=== PATIENT | male | born 1970 | race Caucasian/White ===

== ENCOUNTER 2017-08-01 09:08 | Inpatient (IN) | payer OTHER ==
[2017-08-01 10:32] VITALS: BMI 24.8
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
[2017-08-01] MEDS ORDERED: ACETAMINOPHEN 325 MG TABLET (FP) PO PRN (11:42)
[2017-08-01] MEDS ORDERED: MAGNESIUM CITRATE 300 ML BOTTLE PO PRN (11:42)
[2017-08-01] MEDS ORDERED: guaiFENesin/D-METHORPHAN HB 10 ML UNIT-DOSE CUPS PO PRN (11:42)
[2017-08-01] MEDS ORDERED: P-EPHED 60MG/TRIPROLIDI 2.5MG TABLET PO PRN (11:42)
[2017-08-01] MEDS ORDERED: MENTHOL/PHENOL 1 EACH UD MM PRN (11:42)
[2017-08-01] MEDS ORDERED: NICOTINE POLACRILEX 4 MG GUM BUC PRN (11:42)
[2017-08-01] MEDS ORDERED: IBUPROFEN 400 MG TABLET (FP) PO PRN (11:42)
[2017-08-01] MEDS ORDERED: LOPERAMIDE HCL 2 MG CAPSULE PO PRN (11:42)
[2017-08-01] MEDS ORDERED: MAG HYDROX/AL HYDROX/SIMETH 30 ML UNIT-DOSE CUP PO PRN (11:42)
[2017-08-01] MEDS ORDERED: MAGNESIUM HYDROX 2400MG/30ML ORAL SUSPENSION 30 ML CUP PO PRN (11:42)
[2017-08-01] MEDS ORDERED: METHADONE HCL 10 MG TABLET (FOR DETOX USE ONLY) PO ONE ×2 (11:56→23:00)
[2017-08-01] MEDS: diazePAM 5 MG TABLET PO PRN ×2 (12:46→22:02)
[2017-08-01 17:54] LABS: URINE APPEARANCE SLCLOUDY; URINE BILIRUBIN NEGATIVE (NEGATIVE); URINE BLOOD NEGATIVE (NEGATIVE); URINE COLOR YELLOW; URINE GLUCOSE (UA) NEGATIVE (NEGATIVE); URINE KETONE NEGATIVE (NEGATIVE); URINE NITRITE NEGATIVE (NEGATIVE); URINE PROTEIN NEGATIVE (NEGATIVE); URINE UROBILINOGEN NEGATIVE mg/dL (0.2-1.0)
[2017-08-01] MEDS: THIAMINE HCL 100 MG TABLET (FP) PO SCH (22:01)
[2017-08-01 22:04] LABS: URINE LEUK ESTERASE Negative (NEGATIVE)
[2017-08-02] MEDS: diazePAM 5 MG TABLET PO PRN ×3 (06:29→22:02)
[2017-08-02 06:48] LABS: HIV 1 & 2 AB NEGATIVE; HIV 1 AGp24 NEGATIVE
--- NOTE | 2017-08-02 09:46 | EKG ---
Test Reason : Blood Pressure : / mmHG Vent. Rate : 061 BPM Atrial Rate : 061 BPM P-R Int : 190 ms QRS Dur : 088 ms QT Int : 380 ms P-R-T Axes : 076 078 065 degrees QTc Int : 382 ms NORMAL SINUS RHYTHM NORMAL ECG NO PREVIOUS ECGS AVAILABLE Confirmed by SERG DELEON, MADI ([id number]) on 08/02/2017 9:45:41 AM Referred By: Confirmed By:MADI ULRICH MD
[2017-08-02] MEDS ORDERED: METHADONE HCL 10 MG TABLET (FOR DETOX USE ONLY) PO ONE (10:00)
[2017-08-02 10:01] LABS: MCH 27.4 pg (25.7-33.7); MCHC 32.3 g/dl (32.0-35.9); MEAN CELL VOLUME 84.8 fl (80-96); MEAN PLT VOLUME 8.5 fl (7.5-11.1); PLATELET COUNT 227 K/MM3 (134-434); WHITE BLOOD COUNT 6.9 K/mm3 (4.0-10.0)
[2017-08-02 10:09] LABS: ALBUMIN 3.8 g/dl (3.4-5.0); ANION GAP 7 (8-16); CALCIUM 8.9 mg/dL (8.5-10.1); CO2 29 mmol/L (21-32); CREATININE 1.4 mg/dL (0.7-1.3); GLUCOSE,RANDOM 92 mg/dL (74-106); SGOT/AST 11 U/L (15-37); SGPT/ALT 19 U/L (12-78)
[2017-08-02 10:10] LABS: ALK PHOS 93 U/L (45-117); BILIRUBIN,TOTAL 0.6 mg/dL (0.2-1.0); TOT PROT 6.7 g/dl (6.4-8.2)
[2017-08-02] MEDS: PRENATAL VITAMINS W/ FOLIC ACID TABLET (FP) PO SCH (10:32)
[2017-08-02] MEDS: NICOTINE 21 MG/24 HOURS TOPICAL PATCH TD SCH (10:33)
--- NOTE | 2017-08-02 12:19 | PN ---
BHS COWS - Scale Resting Pulse: 2= [place] 101-120 Sweatin=Flushed/Facial Moisture Restless Observation: 1= Difficult to Sit Still Pupil Size: 0= Normal to Room Light Bone or Joint Aches: 2= Severe Diffuse Aches Runny Nose/ Eye Tearin= Nasal Congestion GI Upset > 30mins: 1= Stomach Cramp Tremor Observation of Outstretched Hands: 0= None Yawning Observation: 1= 1-2x During Session Anxiety or Irritability: 2=Irritable/Anxious Goose Flesh Skin: 3=Piloerection COWS Score: 15 BHS Progress Note (SOAP) Subjective: Sweating, Body Aches, Anxious. Objective: PT. A & O X 3, OBSERVED AMBULATING ON UNIT. NO ACUTE DISTRESS. 08/02/17 12:21 Vital Signs Temperature 97.8 F 08/02/17 09:41 Pulse Rate 113 H 08/02/17 09:41 Respiratory Rate 18 08/02/17 09:41 Blood Pressure 115/78 08/02/17 09:41 O2 Sat by Pulse Oximetry (%) Laboratory Tests 08/01/17 08/01/17 08/02/17 11:50 15:30 05:30 WBC 6.9 RBC 5.24 Hgb 14.4 Hct 44.4 MCV 84.8 MCH 27.4 MCHC 32.3 RDW 15.0 Plt Count 227 MPV 8.5 Sodium Potassium Chloride Carbon Dioxide Anion Gap BUN Creatinine Creat Clearance w eGFR Random Glucose Calcium Total Bilirubin AST ALT Alkaline Phosphatase Total Protein Albumin Urine Color Yellow Urine Appearance Slcloudy Urine pH 5.0 Ur Specific [place] 1.028 Urine Protein Negative Urine Glucose (UA) Negative Urine Ketones Negative Urine Blood Negative Urine Nitrite Negative Urine Bilirubin Negative Urine Urobilinogen Negative Ur Leukocyte Esterase Negative RPR Titer HIV 1&2 Antibody Screen Negative HIV P24 Antigen Negative 08/02/17 08/02/17 05:30 05:30 WBC RBC Hgb Hct MCV MCH MCHC RDW Plt Count MPV Sodium 141 Potassium 4.1 Chloride 105 Carbon Dioxide 29 Anion Gap 7 L BUN 14 Creatinine 1.4 H Creat Clearance w eGFR 54.56 Random Glucose 92 Calcium 8.9 Total Bilirubin 0.6 AST 11 L ALT 19 Alkaline Phosphatase 93 Total Protein 6.7 Albumin 3.8 Urine Color Urine Appearance Urine pH Ur Specific [place] Urine Protein Urine Glucose (UA) Urine Ketones Urine Blood Urine Nitrite Urine Bilirubin Urine Urobilinogen Ur Leukocyte Esterase RPR Titer Nonreactive HIV 1&2 Antibody Screen HIV P24 Antigen LABS NOTED. Assessment: 08/02/17 12:21 WITHDRAWAL SYMPTOMS. Plan: CONTINUE DETOX. INCREASE DAILY PO FLUID INTAKE. BMP ON 08/04/2017 FOR ABNORMAL ADMISSION RENAL LAB VALUES.
--- NOTE | 2017-08-02 15:06 | CONSULT ---
[facility] Psychiatric Consult - Data Date of interview: 08/02/17 Admission source: [facility] Identifying data: First admission to [facility] for this 47 y/o male seeking detox treatment on for heroin and cannabis dependence.Patient is single,a father of two,domiciled,unemployed and supported on SSI benefits. Substance Abuse History: Confirmed by patient in this interview. See [facility] report for details.Smoking history: Current every day smoker. Have you smoked in the past 12 months: Yes. Aproximately how many cigarettes per day: 10. Hx Chewing Tobacco Use: No. Initiated information on smoking cessation: Yes. ' Breaking Loose' booklet given: 08/01/17. - Substance & Tx. History. Hx Alcohol Use: No. Hx Substance Use: Yes. Substance Use Type: Heroin, Marijuana. Hx Substance Use Treatment: No. - Substances Abused. Heroin. Route: Inhalation. Frequency: Daily. Amount used: 3 bags. Age of first use: 44. Date of Last Use: 08/01/17. Marijuana/Hashish. Route: Smoking. Frequency: 1-2 times per week. Amount used: $10. Age of first use: 19. Date of Last Use: 08/01/17 Medical History: Patient reports good general health. Psychiatric History: Diagnosed with Bipolar Disorder.Patient reports that he is currently followed at the [facility] in [facility].Admits to two psychiatric hospitalizations.Prescribed zyprexa (dose not recalled).Date of last intake : unknown as per self-report.Mr Ramirez denies history of suicide attempts. Physical/Sexual Abuse/Trauma History: Patient denies. Additional Comment: Urine Drug Screen Results: THC-Marijuana, OPI-Opiates, AMP- Amphetamines, MET-Methamphetamine.Noted. Mental Status Exam - Mental Status Exam Alert and Oriented to: Time, Place, Person Cognitive Function: Good Patient Appearance: Well Groomed Mood: Hopeful, Euthymic Affect: Appropriate, Normal Range Patient Behavior: Fatigued, Cooperative Speech Pattern: Clear Voice Loudness: Normal Thought Process: Goal Oriented Thought Disorder: Not Present Hallucinations: Denies Suicidal Ideation: Denies Homicidal Ideation: Denies Insight/Judgement: Poor Sleep: Well Appetite: Good Muscle strength/Tone: Normal Gait/Station: Normal Psychiatric Findings - Problem List ([place] 1, 2,3) (1) Opioid dependence with withdrawal Current Visit: Yes Status: Acute (2) Cannabis dependence Current Visit: Yes Status: Acute (3) Nicotine dependence Current Visit: Yes Status: Acute Qualifiers: Nicotine product type: cigarettes Substance use status: uncomplicated Qualified Code(s): F17.210 - Nicotine dependence, cigarettes, uncomplicated (4) Substance induced mood disorder Current Visit: Yes Status: Acute - Initial Treatment Plan Initial Treatment Plan: Psychoeducation.Detoxification.I have established contact with the pharmacist at [facility] at [phone] : last refill for olanzapine 20 mg/day was issued in November 2013.Patient is NOT a reliable historian.Advised to contact provider at [facility] outpatient program.Medications reconciliation : NO HOME medications.Observation.
--- NOTE | 2017-08-02 18:43 | PN ---
S Progress Note Note: received nurse call that the patient has cell phone with him, removed by the security continue deotx
[2017-08-02] MEDS: THIAMINE HCL 100 MG TABLET (FP) PO SCH (22:02)
[2017-08-03] MEDS ORDERED: METHADONE HCL 5 MG TABLET (FOR DETOX USE ONLY) PO ONE (10:00)
[2017-08-03] MEDS: NICOTINE 21 MG/24 HOURS TOPICAL PATCH TD SCH (10:48)
[2017-08-03] MEDS: PRENATAL VITAMINS W/ FOLIC ACID TABLET (FP) PO SCH (10:48)
--- NOTE | 2017-08-03 14:27 | PN ---
S COWS - Scale Resting Pulse: 0= [place] 80 or Below Sweatin= Chills/Flushing Restless Observation: 1= Difficult to Sit Still Pupil Size: 0= Normal to Room Light Bone or Joint Aches: 2= Severe Diffuse Aches Runny Nose/ Eye Tearin= Nasal Congestion GI Upset > 30mins: 1= Stomach Cramp Tremor Observation of Outstretched Hands: 1= Tremor [place], Not Seen Yawning Observation: 2= >3x During Session Anxiety or Irritability: 1=Feels Anxious/Irritable Goose Flesh Skin: 3=Piloerection COWS Score: 13 BHS Progress Note (SOAP) Subjective: Constipation, Tremors, Anxious, Sweating. Objective: PT. A & O X 3. NO ACUTE DISTRESS. 08/03/17 14:26 Vital Signs Temperature 95.8 F L 08/03/17 08:54 Pulse Rate 75 08/03/17 08:54 Respiratory Rate 18 08/03/17 08:54 Blood Pressure 114/81 08/03/17 08:54 O2 Sat by Pulse Oximetry (%) Laboratory Tests 08/01/17 08/01/17 08/02/17 11:50 15:30 05:30 WBC 6.9 RBC 5.24 Hgb 14.4 Hct 44.4 MCV 84.8 MCH 27.4 MCHC 32.3 RDW 15.0 Plt Count 227 MPV 8.5 Sodium Potassium Chloride Carbon Dioxide Anion Gap BUN Creatinine Creat Clearance w eGFR Random Glucose Calcium Total Bilirubin AST ALT Alkaline Phosphatase Total Protein Albumin Urine Color Yellow Urine Appearance Slcloudy Urine pH 5.0 Ur Specific [place] 1.028 Urine Protein Negative Urine Glucose (UA) Negative Urine Ketones Negative Urine Blood Negative Urine Nitrite Negative Urine Bilirubin Negative Urine Urobilinogen Negative Ur Leukocyte Esterase Negative RPR Titer HIV 1&2 Antibody Screen Negative HIV P24 Antigen Negative 08/02/17 08/02/17 05:30 05:30 WBC RBC Hgb Hct MCV MCH MCHC RDW Plt Count MPV Sodium 141 Potassium 4.1 Chloride 105 Carbon Dioxide 29 Anion Gap 7 L BUN 14 Creatinine 1.4 H Creat Clearance w eGFR 54.56 Random Glucose 92 Calcium 8.9 Total Bilirubin 0.6 AST 11 L ALT 19 Alkaline Phosphatase 93 Total Protein 6.7 Albumin 3.8 Urine Color Urine Appearance Urine pH Ur Specific [place] Urine Protein Urine Glucose (UA) Urine Ketones Urine Blood Urine Nitrite Urine Bilirubin Urine Urobilinogen Ur Leukocyte Esterase RPR Titer Nonreactive HIV 1&2 Antibody Screen HIV P24 Antigen LABS NOTED. Assessment: 08/03/17 14:26 WITHDRAWAL SYMPTOMS. Plan: CONTINUE DETOX. INCREASE DAILY PO FLUID INTAKE. ENCOURAGE AMBULATION.
[2017-08-03] MEDS: diazePAM 5 MG TABLET PO PRN (22:39)
[2017-08-03] MEDS: hydrOXYzine PAMOATE 50 MG CAPSULE (FP) PO PRN (22:39)
[2017-08-03] MEDS: THIAMINE HCL 100 MG TABLET (FP) PO SCH (22:39)
[2017-08-04] MEDS ORDERED: METHADONE HCL 5 MG TABLET (FOR DETOX USE ONLY) PO ONE (10:00)
[2017-08-04] MEDS: diazePAM 5 MG TABLET PO PRN (10:32)
[2017-08-04] MEDS: PRENATAL VITAMINS W/ FOLIC ACID TABLET (FP) PO SCH (10:32)
[2017-08-04] MEDS: NICOTINE 21 MG/24 HOURS TOPICAL PATCH TD SCH (10:35)
--- NOTE | 2017-08-04 12:19 | PN ---
BHS Progress Note (SOAP) Subjective: Sweating, Anxious, Stomach Cramping, Body Aches, Fatigue. Objective: PT. A & O X 3, OBSERVED AMBULATING ON UNIT. NO ACUTE DISTRESS. 08/04/17 12:18 Vital Signs Temperature 96.9 F L 08/04/17 10:00 Pulse Rate 105 H 08/04/17 10:00 Respiratory Rate 20 08/04/17 10:00 Blood Pressure 119/75 08/04/17 10:00 O2 Sat by Pulse Oximetry (%) Laboratory Tests 08/01/17 08/01/17 08/02/17 11:50 15:30 05:30 WBC 6.9 RBC 5.24 Hgb 14.4 Hct 44.4 MCV 84.8 MCH 27.4 MCHC 32.3 RDW 15.0 Plt Count 227 MPV 8.5 Sodium Potassium Chloride Carbon Dioxide Anion Gap BUN Creatinine Creat Clearance w eGFR Random Glucose Calcium Total Bilirubin AST ALT Alkaline Phosphatase Total Protein Albumin Urine Color Yellow Urine Appearance Slcloudy Urine pH 5.0 Ur Specific [place] 1.028 Urine Protein Negative Urine Glucose (UA) Negative Urine Ketones Negative Urine Blood Negative Urine Nitrite Negative Urine Bilirubin Negative Urine Urobilinogen Negative Ur Leukocyte Esterase Negative RPR Titer HIV 1&2 Antibody Screen Negative HIV P24 Antigen Negative 08/02/17 08/02/17 05:30 05:30 WBC RBC Hgb Hct MCV MCH MCHC RDW Plt Count MPV Sodium 141 Potassium 4.1 Chloride 105 Carbon Dioxide 29 Anion Gap 7 L BUN 14 Creatinine 1.4 H Creat Clearance w eGFR 54.56 Random Glucose 92 Calcium 8.9 Total Bilirubin 0.6 AST 11 L ALT 19 Alkaline Phosphatase 93 Total Protein 6.7 Albumin 3.8 Urine Color Urine Appearance Urine pH Ur Specific [place] Urine Protein Urine Glucose (UA) Urine Ketones Urine Blood Urine Nitrite Urine Bilirubin Urine Urobilinogen Ur Leukocyte Esterase RPR Titer Nonreactive HIV 1&2 Antibody Screen HIV P24 Antigen LABS NOTED. RESULTS OF BMP PENDING. 08/04/17 12:18 Assessment: 08/04/17 12:18 WITHDRAWAL SYMPTOMS. Plan: CONTINUE DETOX.
[2017-08-04 14:42] LABS: ANION GAP 7 (8-16); CALCIUM 9.1 mg/dL (8.5-10.1); CO2 31 mmol/L (21-32); CREATININE 1.1 mg/dL (0.7-1.3); GLUCOSE,RANDOM 67 mg/dL (74-106)
[2017-08-04] MEDS: hydrOXYzine PAMOATE 50 MG CAPSULE (FP) PO PRN (22:15)
[2017-08-04] MEDS: THIAMINE HCL 100 MG TABLET (FP) PO SCH (22:15)
[2017-08-05] MEDS ORDERED: METHADONE HCL 10 MG TABLET (FOR DETOX USE ONLY) PO ONE (10:00)
[2017-08-05] MEDS: hydrOXYzine PAMOATE 50 MG CAPSULE (FP) PO PRN (10:16)
[2017-08-05] MEDS: PRENATAL VITAMINS W/ FOLIC ACID TABLET (FP) PO SCH (10:16)
[2017-08-05] MEDS: NICOTINE 21 MG/24 HOURS TOPICAL PATCH TD SCH (10:17)
--- NOTE | 2017-08-05 13:06 | PN ---
BHS Progress Note (SOAP) Subjective: Fatigue, Tremors, Anxious. Objective: PT. A & O X 3, OBSERVED AMBULATING ON UNIT. NO ACUTE DISTRESS. 08/05/17 13:04 Vital Signs Temperature 97.6 F 08/05/17 10:00 Pulse Rate 105 H 08/05/17 10:00 Respiratory Rate 20 08/05/17 10:00 Blood Pressure 114/64 08/05/17 10:00 O2 Sat by Pulse Oximetry (%) Laboratory Tests 08/01/17 08/01/17 08/02/17 11:50 15:30 05:30 WBC 6.9 RBC 5.24 Hgb 14.4 Hct 44.4 MCV 84.8 MCH 27.4 MCHC 32.3 RDW 15.0 Plt Count 227 MPV 8.5 Sodium Potassium Chloride Carbon Dioxide Anion Gap BUN Creatinine Creat Clearance w eGFR Random Glucose Calcium Total Bilirubin AST ALT Alkaline Phosphatase Total Protein Albumin Urine Color Yellow Urine Appearance Slcloudy Urine pH 5.0 Ur Specific [place] 1.028 Urine Protein Negative Urine Glucose (UA) Negative Urine Ketones Negative Urine Blood Negative Urine Nitrite Negative Urine Bilirubin Negative Urine Urobilinogen Negative Ur Leukocyte Esterase Negative RPR Titer HIV 1&2 Antibody Screen Negative HIV P24 Antigen Negative 08/02/17 08/02/17 08/04/17 05:30 05:30 10:04 WBC RBC Hgb Hct MCV MCH MCHC RDW Plt Count MPV Sodium 141 143 Potassium 4.1 3.9 Chloride 105 105 Carbon Dioxide 29 31 Anion Gap 7 L 7 L BUN 14 10 D Creatinine 1.4 H 1.1 D Creat Clearance w eGFR 54.56 Random Glucose 92 67 L D Calcium 8.9 9.1 Total Bilirubin 0.6 AST 11 L ALT 19 Alkaline Phosphatase 93 Total Protein 6.7 Albumin 3.8 Urine Color Urine Appearance Urine pH Ur Specific [place] Urine Protein Urine Glucose (UA) Urine Ketones Urine Blood Urine Nitrite Urine Bilirubin Urine Urobilinogen Ur Leukocyte Esterase RPR Titer Nonreactive HIV 1&2 Antibody Screen HIV P24 Antigen LABS NOTED. RESULTS OF BMP NOTED. 08/05/17 13:05 Assessment: 08/05/17 13:04 WITHDRAWAL SYMPTOMS. Plan: CONTINUE DETOX. INCREASE DAILY PO FLUID INTAKE. ENCOURAGE AMBULATION.
[2017-08-05] MEDS: THIAMINE HCL 100 MG TABLET (FP) PO SCH (23:39)
[2017-08-06 06:00] VITALS: BP 102/67; PULSE 68; TEMP 96.8
[2017-08-06] MEDS ORDERED: METHADONE HCL 5 MG TABLET (FOR DETOX USE ONLY) PO ONE (06:00)
--- NOTE | 2017-08-06 11:34 | DS ---
[facility] Detox Discharge Summary Admission Date: 08/01/17 Discharge Date: 08/06/17 - History Present History: Opioid Dependence Pertinent Past History: Denies - Physical Exam Results Vital Signs: Vital Signs Temperature 96.8 F L 08/06/17 06:00 Pulse Rate 68 08/06/17 06:00 Respiratory Rate 18 08/06/17 06:00 Blood Pressure 102/67 08/06/17 06:00 O2 Sat by Pulse Oximetry (%) Pertinent Admission Physical Exam Findings: Withdrawal symptoms Laboratory Tests 08/01/17 08/01/17 08/02/17 11:50 15:30 05:30 WBC 6.9 RBC 5.24 Hgb 14.4 Hct 44.4 MCV 84.8 MCH 27.4 MCHC 32.3 RDW 15.0 Plt Count 227 MPV 8.5 Sodium Potassium Chloride Carbon Dioxide Anion Gap BUN Creatinine Creat Clearance w eGFR Random Glucose Calcium Total Bilirubin AST ALT Alkaline Phosphatase Total Protein Albumin Urine Color Yellow Urine Appearance Slcloudy Urine pH 5.0 Ur Specific [place] 1.028 Urine Protein Negative Urine Glucose (UA) Negative Urine Ketones Negative Urine Blood Negative Urine Nitrite Negative Urine Bilirubin Negative Urine Urobilinogen Negative Ur Leukocyte Esterase Negative RPR Titer HIV 1&2 Antibody Screen Negative HIV P24 Antigen Negative 08/02/17 08/02/17 08/04/17 05:30 05:30 10:04 WBC RBC Hgb Hct MCV MCH MCHC RDW Plt Count MPV Sodium 141 143 Potassium 4.1 3.9 Chloride 105 105 Carbon Dioxide 29 31 Anion Gap 7 L 7 L BUN 14 10 D Creatinine 1.4 H 1.1 D Creat Clearance w eGFR 54.56 Random Glucose 92 67 L D Calcium 8.9 9.1 Total Bilirubin 0.6 AST 11 L ALT 19 Alkaline Phosphatase 93 Total Protein 6.7 Albumin 3.8 Urine Color Urine Appearance Urine pH Ur Specific [place] Urine Protein Urine Glucose (UA) Urine Ketones Urine Blood Urine Nitrite Urine Bilirubin Urine Urobilinogen Ur Leukocyte Esterase RPR Titer Nonreactive HIV 1&2 Antibody Screen HIV P24 Antigen Labs noted - Treatment Hospital Course: Detox Protocol Followed, Detoxed Safely, Responded well, Discharged Condition Good - Medication Discharge Medications: Ambulatory Orders NK [No Known Home Medication] 08/01/17 - Diagnosis (1) Depression Status: Chronic (2) Cannabis dependence Status: Chronic (3) Nicotine dependence Status: Chronic Qualifiers: Nicotine product type: cigarettes Substance use status: uncomplicated Qualified Code(s): F17.210 - Nicotine dependence, cigarettes, uncomplicated (4) Opioid dependence with withdrawal Status: Acute - AMA Did Patient Leave Against Medical Advice: No (F/U with PCP in 1-2 weeks)
== END 2017-08-06 09:31 | disposition home or self-care (01) | DRG 773 ==
LOC: YASAS 09:08 → Y3N 11:48
PROVIDERS: ADMIT Internal Medicine; ATTEND Internal Medicine
PROC: HZ2ZZZZ Detoxification Services for Substance Abuse Treatment (ICD-10-PCS; principal; 2017-08-01)
DX: F11.23 Opioid dependence with withdrawal (principal); F12.20 Cannabis dependence, uncomplicated; F17.210 Nicotine dependence, cigarettes, uncomplicated; F19.24 Other psychoactive substance dependence with psychoactive substance-induced mood disorder; F32.9 Major depressive disorder, single episode, unspecified
CPT/HCPCS: 36415; 80048; 80053; 81003; 85027; 86593; 87389; 93005; 93010

== ENCOUNTER 2017-09-15 09:40 | Inpatient (IN) | payer OTHER ==
[2017-09-15 10:19] VITALS: BMI 25.2
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
[2017-09-15] MEDS ORDERED: IBUPROFEN 400 MG TABLET (FP) PO PRN (12:22)
[2017-09-15] MEDS ORDERED: ACETAMINOPHEN 325 MG TABLET (FP) PO PRN (12:22)
[2017-09-15] MEDS ORDERED: hydrOXYzine PAMOATE 50 MG CAPSULE (FP) PO PRN (12:22)
[2017-09-15] MEDS ORDERED: MENTHOL/PHENOL 1 EACH UD MM PRN (12:22)
[2017-09-15] MEDS ORDERED: guaiFENesin/D-METHORPHAN HB 10 ML UNIT-DOSE CUPS PO PRN (12:22)
[2017-09-15] MEDS ORDERED: LOPERAMIDE HCL 2 MG CAPSULE PO PRN (12:22)
[2017-09-15] MEDS ORDERED: MAGNESIUM HYDROX 2400MG/30ML ORAL SUSPENSION 30 ML CUP PO PRN (12:22)
[2017-09-15] MEDS ORDERED: NICOTINE POLACRILEX 2 MG GUM BUC PRN (12:22)
[2017-09-15] MEDS ORDERED: P-EPHED 60MG/TRIPROLIDI 2.5MG TABLET PO PRN (12:22)
[2017-09-15] MEDS ORDERED: MAGNESIUM CITRATE 300 ML BOTTLE PO PRN (12:22)
[2017-09-15] MEDS ORDERED: MAG HYDROX/AL HYDROX/SIMETH 30 ML UNIT-DOSE CUP PO PRN (12:22)
[2017-09-15] MEDS ORDERED: METHADONE HCL 10 MG TABLET (FOR DETOX USE ONLY) PO ONE ×2 (12:46→23:00)
[2017-09-15] MEDS: NICOTINE 21 MG/24 HOURS TOPICAL PATCH TD SCH (13:26)
--- NOTE | 2017-09-15 15:18 | EKG ---
Test Reason : Blood Pressure : / mmHG Vent. Rate : 049 BPM Atrial Rate : 049 BPM P-R Int : 182 ms QRS Dur : 104 ms QT Int : 388 ms P-R-T Axes : 073 068 053 degrees QTc Int : 350 ms SINUS BRADYCARDIA INCOMPLETE RIGHT BUNDLE BRANCH BLOCK SEPTAL INFARCT , AGE UNDETERMINED ABNORMAL ECG Confirmed by ANA M BARR MD ([id number]) on 09/15/2017 3:18:37 PM Referred By: Confirmed By:ANA M BARR MD
[2017-09-15 16:57] LABS: URINE APPEARANCE CLEAR; URINE BILIRUBIN NEGATIVE (NEGATIVE); URINE BLOOD NEGATIVE (NEGATIVE); URINE COLOR YELLOW; URINE GLUCOSE (UA) NEGATIVE (NEGATIVE); URINE KETONE NEGATIVE (NEGATIVE); URINE LEUK ESTERASE NEGATIVE (NEGATIVE); URINE NITRITE NEGATIVE (NEGATIVE); URINE PROTEIN NEGATIVE (NEGATIVE); URINE UROBILINOGEN NEGATIVE mg/dL (0.2-1.0)
[2017-09-15] MEDS: diazePAM 5 MG TABLET PO PRN ×2 (17:37→22:06)
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
[2017-09-15] MEDS: cloNIDine HCL 0.1 MG TABLET PO SCH (22:06)
[2017-09-15] MEDS: THIAMINE HCL 100 MG TABLET (FP) PO SCH (22:06)
[2017-09-15] MEDS: CYCLOBENZAPRINE HCL 10 MG TABLET (FP) PO PRN (22:06)
[2017-09-16] MEDS ORDERED: METHADONE HCL 10 MG TABLET (FOR DETOX USE ONLY) PO ONE (10:00)
[2017-09-16] MEDS: NICOTINE 21 MG/24 HOURS TOPICAL PATCH TD SCH (10:13)
[2017-09-16] MEDS: PRENATAL VITAMINS W/ FOLIC ACID TABLET (FP) PO SCH (10:13)
[2017-09-16] MEDS: cloNIDine HCL 0.1 MG TABLET PO SCH ×2 (10:13→22:31)
[2017-09-16] MEDS: diazePAM 5 MG TABLET PO PRN ×2 (10:14→22:33)
--- NOTE | 2017-09-16 10:45 | PN ---
BHS COWS - Scale Resting Pulse: 1= [place] 81-100 Sweatin= Chills/Flushing Restless Observation: 3= Extraneous Movement Pupil Size: 1= Pupils >than Normal Bone or Joint Aches: 2= Severe Diffuse Aches Runny Nose/ Eye Tearin= Runny Nose/Eyes GI Upset > 30mins: 3= Vomiting/Diarrhea Tremor Observation of Outstretched Hands: 2= Slight Tremor Visible Yawning Observation: 1= 1-2x During Session Anxiety or Irritability: 2=Irritable/Anxious Goose Flesh Skin: 0=Smooth Skin COWS Score: 18 BHS Progress Note (SOAP) Subjective: ALERT,IRRITABLE,ANXIOUS,INTERRUPTED SLEEP,TREMOR,PAIN IN THE BODY AND BACK Objective: 09/16/17 10:43 Vital Signs Temperature 97 F L 09/16/17 10:13 Pulse Rate 83 09/16/17 10:13 Respiratory Rate 18 09/16/17 10:13 Blood Pressure 109/66 09/16/17 10:13 O2 Sat by Pulse Oximetry (%) 09/16/17 10:43 EKG SINUS BRADYCARDIA 49/MN,INVERTED T IN V1,V2 NO CHEST PAIN,NO SOB,NO DIZZINESS Laboratory Last Values Urine Color Yellow 09/15/17 14:40 Urine Appearance Clear 09/15/17 14:40 Urine pH 5.0 (5.0-8.0) 09/15/17 14:40 Ur Specific [place] 1.026 (1.001-1.035) 09/15/17 14:40 Urine Protein Negative (NEGATIVE) 09/15/17 14:40 Urine Glucose (UA) Negative (NEGATIVE) 09/15/17 14:40 Urine Ketones Negative (NEGATIVE) 09/15/17 14:40 Urine Blood Negative (NEGATIVE) 09/15/17 14:40 Urine Nitrite Negative (NEGATIVE) 09/15/17 14:40 Urine Bilirubin Negative (NEGATIVE) 09/15/17 14:40 Urine Urobilinogen Negative mg/dL (0.2-1.0) 09/15/17 14:40 Ur Leukocyte Esterase Negative (NEGATIVE) 09/15/17 14:40 HIV 1&2 Antibody Screen Negative 09/15/17 12:00 HIV P24 Antigen Negative 09/15/17 12:00 LABS PENDING Assessment: 09/16/17 10:45 WITHDRAWAL SYMPTOM Plan: CONTINUE DETOX
[2017-09-16 11:02] LABS: HEMATOCRIT 46.1 % (35.4-49); HEMOGLOBIN 15.2 GM/dL (11.7-16.9); MCH 28.3 pg (25.7-33.7); MCHC 32.9 g/dl (32.0-35.9); MEAN PLT VOLUME 8.6 fl (7.5-11.1); PLATELET COUNT 226 K/MM3 (134-434); RBC 5.36 M/mm3 (4.00-5.60); RDW 15.2 % (11.9-15.9); WHITE BLOOD COUNT 6.4 K/mm3 (4.0-10.0)
[2017-09-16 11:04] LABS: ALBUMIN 3.6 g/dl (3.4-5.0); ALK PHOS 114 U/L (45-117); ANION GAP 4 (8-16); BILIRUBIN,TOTAL 0.5 mg/dL (0.2-1.0); BLOOD UREA NITROGEN 12 mg/dL (7-18); CALCIUM 8.5 mg/dL (8.5-10.1); CHLORIDE 108 mmol/L (98-107); CO2 27 mmol/L (21-32); CREATININE 1.2 mg/dL (0.7-1.3); GLUCOSE,RANDOM 105 mg/dL (74-106); POTASSIUM 3.9 mmol/L (3.5-5.1); SGOT/AST 11 U/L (15-37); SGPT/ALT 24 U/L (12-78); SODIUM 139 mmol/L (136-145)
[2017-09-16] MEDS: THIAMINE HCL 100 MG TABLET (FP) PO SCH (22:31)
[2017-09-17] MEDS ORDERED: METHADONE HCL 5 MG TABLET (FOR DETOX USE ONLY) PO ONE (10:00)
--- NOTE | 2017-09-17 10:54 | PN ---
S COWS - Scale Resting Pulse: 0= [place] 80 or Below Sweatin= Chills/Flushing Restless Observation: 1= Difficult to Sit Still Pupil Size: 1= Pupils >than Normal Bone or Joint Aches: 2= Severe Diffuse Aches Runny Nose/ Eye Tearin= Runny Nose/Eyes GI Upset > 30mins: 1= Stomach Cramp Tremor Observation of Outstretched Hands: 2= Slight Tremor Visible Yawning Observation: 1= 1-2x During Session Anxiety or Irritability: 1=Feels Anxious/Irritable Goose Flesh Skin: 0=Smooth Skin COWS Score: 12 S Progress Note (SOAP) Subjective: GI upset sweating restlessness anxiety Objective: 09/17/17 10:52 Vital Signs Temperature 97.5 F L 09/17/17 06:32 Pulse Rate 59 L 09/17/17 06:32 Respiratory Rate 16 09/17/17 06:32 Blood Pressure 101/66 09/17/17 06:32 O2 Sat by Pulse Oximetry (%) Laboratory Last Values WBC 6.4 K/mm3 (4.0-10.0) 09/16/17 05:40 RBC 5.36 M/mm3 (4.00-5.60) 09/16/17 05:40 Hgb 15.2 GM/dL (11.7-16.9) 09/16/17 05:40 Hct 46.1 % (35.4-49) 09/16/17 05:40 MCV 86.0 fl (80-96) 09/16/17 05:40 MCH 28.3 pg (25.7-33.7) 09/16/17 05:40 MCHC 32.9 g/dl (32.0-35.9) 09/16/17 05:40 RDW 15.2 % (11.9-15.9) 09/16/17 05:40 Plt Count 226 K/MM3 (134-434) 09/16/17 05:40 MPV 8.6 fl (7.5-11.1) 09/16/17 05:40 Sodium 139 mmol/L (136-145) 09/16/17 05:40 Potassium 3.9 mmol/L (3.5-5.1) 09/16/17 05:40 Chloride 108 mmol/L (98-107) H 09/16/17 05:40 Carbon Dioxide 27 mmol/L (21-32) 09/16/17 05:40 Anion Gap 4 (8-16) L 09/16/17 05:40 BUN 12 mg/dL (7-18) 09/16/17 05:40 Creatinine 1.2 mg/dL (0.7-1.3) 09/16/17 05:40 Creat Clearance w eGFR > 60 (>60) 09/16/17 05:40 Random Glucose 105 mg/dL (74-106) D 09/16/17 05:40 Calcium 8.5 mg/dL (8.5-10.1) 09/16/17 05:40 Total Bilirubin 0.5 mg/dL (0.2-1.0) 09/16/17 05:40 AST 11 U/L (15-37) L 09/16/17 05:40 ALT 24 U/L (12-78) D 09/16/17 05:40 Alkaline Phosphatase 114 U/L (45-117) D 09/16/17 05:40 Total Protein 7.0 g/dl (6.4-8.2) 09/16/17 05:40 Albumin 3.6 g/dl (3.4-5.0) 09/16/17 05:40 Urine Color Yellow 09/15/17 14:40 Urine Appearance Clear 09/15/17 14:40 Urine pH 5.0 (5.0-8.0) 09/15/17 14:40 Ur Specific [place] 1.026 (1.001-1.035) 09/15/17 14:40 Urine Protein Negative (NEGATIVE) 09/15/17 14:40 Urine Glucose (UA) Negative (NEGATIVE) 09/15/17 14:40 Urine Ketones Negative (NEGATIVE) 09/15/17 14:40 Urine Blood Negative (NEGATIVE) 09/15/17 14:40 Urine Nitrite Negative (NEGATIVE) 09/15/17 14:40 Urine Bilirubin Negative (NEGATIVE) 09/15/17 14:40 Urine Urobilinogen Negative mg/dL (0.2-1.0) 09/15/17 14:40 Ur Leukocyte Esterase Negative (NEGATIVE) 09/15/17 14:40 RPR Titer Nonreactive (NONREACTIVE) 09/16/17 05:40 HIV 1&2 Antibody Screen Negative 09/15/17 12:00 HIV P24 Antigen Negative 09/15/17 12:00 lab noted Assessment: 09/17/17 10:53 withdrawal sx Plan: continue detox
[2017-09-17] MEDS: cloNIDine HCL 0.1 MG TABLET PO SCH ×2 (10:58→22:25)
[2017-09-17] MEDS: NICOTINE 21 MG/24 HOURS TOPICAL PATCH TD SCH (10:58)
[2017-09-17] MEDS: CYCLOBENZAPRINE HCL 10 MG TABLET (FP) PO PRN ×2 (10:59→22:25)
[2017-09-17] MEDS: PRENATAL VITAMINS W/ FOLIC ACID TABLET (FP) PO SCH (10:59)
[2017-09-17] MEDS: diazePAM 5 MG TABLET PO PRN ×2 (10:59→22:25)
[2017-09-17] MEDS: THIAMINE HCL 100 MG TABLET (FP) PO SCH (22:26)
[2017-09-18] MEDS ORDERED: METHADONE HCL 5 MG TABLET (FOR DETOX USE ONLY) PO ONE (10:00)
[2017-09-18] MEDS: NICOTINE 21 MG/24 HOURS TOPICAL PATCH TD SCH (10:48)
[2017-09-18] MEDS: cloNIDine HCL 0.1 MG TABLET PO SCH ×2 (10:48→22:38)
[2017-09-18] MEDS: PRENATAL VITAMINS W/ FOLIC ACID TABLET (FP) PO SCH (10:48)
[2017-09-18] MEDS: diazePAM 5 MG TABLET PO PRN (10:48)
--- NOTE | 2017-09-18 11:56 | PN ---
BHS Progress Note (SOAP) Subjective: DECREASED W/S-ANXIETY,SWEATS,TREMORS. Objective: 09/18/17 11:55 Vital Signs Temperature 97.2 F L 09/18/17 10:50 Pulse Rate 93 H 09/18/17 10:50 Respiratory Rate 18 09/18/17 10:50 Blood Pressure 93/65 09/18/17 10:50 O2 Sat by Pulse Oximetry (%) Laboratory Last Values WBC 6.4 K/mm3 (4.0-10.0) 09/16/17 05:40 RBC 5.36 M/mm3 (4.00-5.60) 09/16/17 05:40 Hgb 15.2 GM/dL (11.7-16.9) 09/16/17 05:40 Hct 46.1 % (35.4-49) 09/16/17 05:40 MCV 86.0 fl (80-96) 09/16/17 05:40 MCH 28.3 pg (25.7-33.7) 09/16/17 05:40 MCHC 32.9 g/dl (32.0-35.9) 09/16/17 05:40 RDW 15.2 % (11.9-15.9) 09/16/17 05:40 Plt Count 226 K/MM3 (134-434) 09/16/17 05:40 MPV 8.6 fl (7.5-11.1) 09/16/17 05:40 Sodium 139 mmol/L (136-145) 09/16/17 05:40 Potassium 3.9 mmol/L (3.5-5.1) 09/16/17 05:40 Chloride 108 mmol/L (98-107) H 09/16/17 05:40 Carbon Dioxide 27 mmol/L (21-32) 09/16/17 05:40 Anion Gap 4 (8-16) L 09/16/17 05:40 BUN 12 mg/dL (7-18) 09/16/17 05:40 Creatinine 1.2 mg/dL (0.7-1.3) 09/16/17 05:40 Creat Clearance w eGFR > 60 (>60) 09/16/17 05:40 Random Glucose 105 mg/dL (74-106) D 09/16/17 05:40 Calcium 8.5 mg/dL (8.5-10.1) 09/16/17 05:40 Total Bilirubin 0.5 mg/dL (0.2-1.0) 09/16/17 05:40 AST 11 U/L (15-37) L 09/16/17 05:40 ALT 24 U/L (12-78) D 09/16/17 05:40 Alkaline Phosphatase 114 U/L (45-117) D 09/16/17 05:40 Total Protein 7.0 g/dl (6.4-8.2) 09/16/17 05:40 Albumin 3.6 g/dl (3.4-5.0) 09/16/17 05:40 Urine Color Yellow 09/15/17 14:40 Urine Appearance Clear 09/15/17 14:40 Urine pH 5.0 (5.0-8.0) 09/15/17 14:40 Ur Specific [place] 1.026 (1.001-1.035) 09/15/17 14:40 Urine Protein Negative (NEGATIVE) 09/15/17 14:40 Urine Glucose (UA) Negative (NEGATIVE) 09/15/17 14:40 Urine Ketones Negative (NEGATIVE) 09/15/17 14:40 Urine Blood Negative (NEGATIVE) 09/15/17 14:40 Urine Nitrite Negative (NEGATIVE) 09/15/17 14:40 Urine Bilirubin Negative (NEGATIVE) 09/15/17 14:40 Urine Urobilinogen Negative mg/dL (0.2-1.0) 09/15/17 14:40 Ur Leukocyte Esterase Negative (NEGATIVE) 09/15/17 14:40 RPR Titer Nonreactive (NONREACTIVE) 09/16/17 05:40 HIV 1&2 Antibody Screen Negative 09/15/17 12:00 HIV P24 Antigen Negative 09/15/17 12:00 Assessment: 09/18/17 11:55 WITHDRAWAL SX Plan: CONTINUE DETOX
[2017-09-18] MEDS: CYCLOBENZAPRINE HCL 10 MG TABLET (FP) PO PRN (22:24)
[2017-09-18] MEDS: THIAMINE HCL 100 MG TABLET (FP) PO SCH (22:24)
[2017-09-19] MEDS ORDERED: METHADONE HCL 10 MG TABLET (FOR DETOX USE ONLY) PO ONE (10:00)
[2017-09-19] MEDS: PRENATAL VITAMINS W/ FOLIC ACID TABLET (FP) PO SCH (11:06)
[2017-09-19] MEDS: cloNIDine HCL 0.1 MG TABLET PO SCH ×2 (11:06→22:13)
[2017-09-19] MEDS: NICOTINE 21 MG/24 HOURS TOPICAL PATCH TD SCH (11:08)
--- NOTE | 2017-09-19 11:19 | PN ---
BHS Progress Note (SOAP) Subjective: DECREASED ANXIETY,SWEATS.SLIGHT FATIGUE. Objective: 09/19/17 11:18 Vital Signs Temperature 97.8 F 09/19/17 10:03 Pulse Rate 91 H 09/19/17 10:03 Respiratory Rate 18 09/19/17 10:03 Blood Pressure 101/67 09/19/17 10:03 O2 Sat by Pulse Oximetry (%) Laboratory Last Values WBC 6.4 K/mm3 (4.0-10.0) 09/16/17 05:40 RBC 5.36 M/mm3 (4.00-5.60) 09/16/17 05:40 Hgb 15.2 GM/dL (11.7-16.9) 09/16/17 05:40 Hct 46.1 % (35.4-49) 09/16/17 05:40 MCV 86.0 fl (80-96) 09/16/17 05:40 MCH 28.3 pg (25.7-33.7) 09/16/17 05:40 MCHC 32.9 g/dl (32.0-35.9) 09/16/17 05:40 RDW 15.2 % (11.9-15.9) 09/16/17 05:40 Plt Count 226 K/MM3 (134-434) 09/16/17 05:40 MPV 8.6 fl (7.5-11.1) 09/16/17 05:40 Sodium 139 mmol/L (136-145) 09/16/17 05:40 Potassium 3.9 mmol/L (3.5-5.1) 09/16/17 05:40 Chloride 108 mmol/L (98-107) H 09/16/17 05:40 Carbon Dioxide 27 mmol/L (21-32) 09/16/17 05:40 Anion Gap 4 (8-16) L 09/16/17 05:40 BUN 12 mg/dL (7-18) 09/16/17 05:40 Creatinine 1.2 mg/dL (0.7-1.3) 09/16/17 05:40 Creat Clearance w eGFR > 60 (>60) 09/16/17 05:40 Random Glucose 105 mg/dL (74-106) D 09/16/17 05:40 Calcium 8.5 mg/dL (8.5-10.1) 09/16/17 05:40 Total Bilirubin 0.5 mg/dL (0.2-1.0) 09/16/17 05:40 AST 11 U/L (15-37) L 09/16/17 05:40 ALT 24 U/L (12-78) D 09/16/17 05:40 Alkaline Phosphatase 114 U/L (45-117) D 09/16/17 05:40 Total Protein 7.0 g/dl (6.4-8.2) 09/16/17 05:40 Albumin 3.6 g/dl (3.4-5.0) 09/16/17 05:40 Urine Color Yellow 09/15/17 14:40 Urine Appearance Clear 09/15/17 14:40 Urine pH 5.0 (5.0-8.0) 09/15/17 14:40 Ur Specific [place] 1.026 (1.001-1.035) 09/15/17 14:40 Urine Protein Negative (NEGATIVE) 09/15/17 14:40 Urine Glucose (UA) Negative (NEGATIVE) 09/15/17 14:40 Urine Ketones Negative (NEGATIVE) 09/15/17 14:40 Urine Blood Negative (NEGATIVE) 09/15/17 14:40 Urine Nitrite Negative (NEGATIVE) 09/15/17 14:40 Urine Bilirubin Negative (NEGATIVE) 09/15/17 14:40 Urine Urobilinogen Negative mg/dL (0.2-1.0) 09/15/17 14:40 Ur Leukocyte Esterase Negative (NEGATIVE) 09/15/17 14:40 RPR Titer Nonreactive (NONREACTIVE) 09/16/17 05:40 HIV 1&2 Antibody Screen Negative 09/15/17 12:00 HIV P24 Antigen Negative 09/15/17 12:00 Assessment: 09/19/17 11:18 WITHDRAWAL SX Plan: CONTINUE DETOX
[2017-09-19] MEDS: THIAMINE HCL 100 MG TABLET (FP) PO SCH (22:13)
[2017-09-20] MEDS ORDERED: METHADONE HCL 5 MG TABLET (FOR DETOX USE ONLY) PO ONE (06:00)
[2017-09-20 06:44] VITALS: BP 102/68; PULSE 71; TEMP 97.7
--- NOTE | 2017-09-20 14:10 | DS ---
[facility] Detox Discharge Summary Admission Date: 09/15/17 Discharge Date: 09/20/17 - History Present History: Cannabis Dependence, Opioid Dependence, Pcp Dependence - Physical Exam Results Vital Signs: Vital Signs Temperature 97.7 F 09/20/17 06:42 Pulse Rate 71 09/20/17 06:42 Respiratory Rate 18 09/20/17 06:42 Blood Pressure 102/68 09/20/17 06:42 O2 Sat by Pulse Oximetry (%) - Treatment Hospital Course: Detox Protocol Followed, Detoxed Safely, Responded well, Discharged Condition Good Patient has Accepted a Rehab Referral to: Patient encourage follow up with out patient self help services - Medication Discharge Medications: Ambulatory Orders NK [No Known Home Medication] 08/01/17 - Diagnosis (1) Cannabis dependence, uncomplicated Status: Acute (2) Nicotine dependence Status: Acute Qualifiers: Nicotine product type: cigarettes Substance use status: in withdrawal Qualified Code(s): F17.213 - Nicotine dependence, cigarettes, with withdrawal (3) Opioid dependence with withdrawal Status: Acute (4) PCP (phencyclidine) abuse Status: Acute (5) Weight loss Status: Acute (6) Bipolar disorder Status: Suspected (7) Substance induced mood disorder Status: Acute
== END 2017-09-20 09:38 | disposition home or self-care (01) | DRG 773 ==
LOC: YASAS 09:40 → Y6N 12:24 → Y3N 09-17 11:16
PROVIDERS: ADMIT Internal Medicine; ATTEND Internal Medicine
PROC: HZ2ZZZZ Detoxification Services for Substance Abuse Treatment (ICD-10-PCS; principal; 2017-09-15)
DX: F11.23 Opioid dependence with withdrawal (principal); F12.20 Cannabis dependence, uncomplicated; F16.10 Hallucinogen abuse, uncomplicated; F17.210 Nicotine dependence, cigarettes, uncomplicated; F31.9 Bipolar disorder, unspecified; F19.24 Other psychoactive substance dependence with psychoactive substance-induced mood disorder; G47.00 Insomnia, unspecified; R63.4 Abnormal weight loss; Z68.25 Body mass index [BMI] 25.0-25.9, adult; Z87.828 Personal history of other (healed) physical injury and trauma
CPT/HCPCS: 36415; 80053; 81003; 85027; 86593; 87389; 93005; 93010

== ENCOUNTER 2017-12-13 15:14 | Inpatient (IN) | payer OTHER ==
[2017-12-13 16:30] VITALS: BMI 25.1
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
[2017-12-13] MEDS ORDERED: ACETAMINOPHEN 325 MG TABLET (FP) PO PRN (19:16)
[2017-12-13] MEDS ORDERED: NICOTINE POLACRILEX 2 MG GUM BC PRN (19:16)
[2017-12-13] MEDS ORDERED: IBUPROFEN 400 MG TABLET (FP) PO PRN (19:16)
[2017-12-13] MEDS ORDERED: METHADONE HCL 10 MG TABLET (FOR DETOX USE ONLY) PO ONE ×2 (19:16→23:00)
[2017-12-13] MEDS ORDERED: MENTHOL/PHENOL 1 EACH UD MM PRN (19:16)
[2017-12-13] MEDS ORDERED: LOPERAMIDE HCL 2 MG CAPSULE PO PRN (19:16)
[2017-12-13] MEDS ORDERED: guaiFENesin/D-METHORPHAN HB 10 ML UNIT-DOSE CUPS PO PRN (19:16)
[2017-12-13] MEDS ORDERED: MAGNESIUM HYDROX 2400MG/30ML ORAL SUSPENSION 30 ML CUP PO PRN (19:16)
[2017-12-13] MEDS ORDERED: MAGNESIUM CITRATE 300 ML BOTTLE PO PRN (19:16)
[2017-12-13] MEDS ORDERED: P-EPHED 60MG/TRIPROLIDI 2.5MG TABLET PO PRN (19:16)
[2017-12-13] MEDS: diazePAM 5 MG TABLET PO PRN (20:39)
[2017-12-13] MEDS: THIAMINE HCL 100 MG TABLET (FP) PO SCH (22:27)
[2017-12-13] MEDS: MELATONIN 5 MG TABLETS PO PRN (22:27)
[2017-12-13 22:51] LABS: URINE APPEARANCE CLEAR; URINE BILIRUBIN NEGATIVE (<2.0 mg/dL); URINE BLOOD NEGATIVE (NEGATIVE); URINE COLOR YELLOW; URINE GLUCOSE (UA) NEGATIVE (NEGATIVE); URINE KETONE NEGATIVE (NEGATIVE); URINE LEUK ESTERASE NEGATIVE (NEGATIVE); URINE NITRITE NEGATIVE (NEGATIVE); URINE PROTEIN NEGATIVE (NEGATIVE); URINE UROBILINOGEN NEGATIVE mg/dL (0.2-1.0)
[2017-12-14] MEDS ORDERED: METHADONE HCL 10 MG TABLET (FOR DETOX USE ONLY) PO ONE (10:00)
[2017-12-14] MEDS: NICOTINE 14 MG/24 HOURS TOPICAL PATCH TD SCH (10:11)
[2017-12-14] MEDS: PRENATAL VITAMINS W/ FOLIC ACID TABLET (FP) PO SCH (10:11)
[2017-12-14] MEDS: diazePAM 5 MG TABLET PO PRN (10:11)
[2017-12-14 10:20] LABS: HEMATOCRIT 43.8 % (35.4-49); HEMOGLOBIN 14.6 GM/dL (11.7-16.9); MCH 28.6 pg (25.7-33.7); MCHC 33.4 g/dl (32.0-35.9); MEAN CELL VOLUME 85.6 fl (80-96); MEAN PLT VOLUME 8.3 fl (7.5-11.1); PLATELET COUNT 191 K/MM3 (134-434); RBC 5.11 M/mm3 (4.00-5.60); RDW 14.8 % (11.9-15.9); WHITE BLOOD COUNT 5.8 K/mm3 (4.0-10.0)
[2017-12-14 10:59] LABS: ALBUMIN 3.3 g/dl (3.4-5.0); ANION GAP 11 (8-16); BLOOD UREA NITROGEN 13 mg/dL (7-18); CALCIUM 8.7 mg/dL (8.5-10.1); CHLORIDE 106 mmol/L (98-107); CO2 26 mmol/L (21-32); CREATININE 1.1 mg/dL (0.7-1.3); GLUCOSE,RANDOM 77 mg/dL (74-106); POTASSIUM 3.9 mmol/L (3.5-5.1); SGOT/AST 15 U/L (15-37); SGPT/ALT 16 U/L (12-78); SODIUM 143 mmol/L (136-145)
[2017-12-14 11:01] LABS: ALK PHOS 91 U/L (45-117); BILIRUBIN,TOTAL 0.3 mg/dL (0.2-1.0); TOT PROT 6.1 g/dl (6.4-8.2)
--- NOTE | 2017-12-14 11:07 | EKG ---
Test Reason : Blood Pressure : / mmHG Vent. Rate : 071 BPM Atrial Rate : 071 BPM P-R Int : 176 ms QRS Dur : 086 ms QT Int : 360 ms P-R-T Axes : 075 077 062 degrees QTc Int : 391 ms NORMAL SINUS RHYTHM NORMAL ECG WHEN COMPARED WITH ECG OF 15-SEP-2017 13:19, INCOMPLETE RIGHT BUNDLE BRANCH BLOCK IS NO LONGER PRESENT CRITERIA FOR SEPTAL INFARCT ARE NO LONGER PRESENT Confirmed by KANNAN DELEON, CUONG ([id number]) on 12/14/2017 11:07:24 AM Referred By: Confirmed By:CUONG BRUNNER MD
[2017-12-14] MEDS ORDERED: FLU VACCINE QUAD 60 MCG/0.5 ML (MDV 17-18) IM ONE (12:00)
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
--- NOTE | 2017-12-14 16:58 | PN ---
BHS COWS - Scale Resting Pulse: 0= [place] 80 or Below Sweatin= Chills/Flushing Restless Observation: 1= Difficult to Sit Still Pupil Size: 0= Normal to Room Light Bone or Joint Aches: 2= Severe Diffuse Aches Runny Nose/ Eye Tearin= None GI Upset > 30mins: 0= None Tremor Observation of Outstretched Hands: 2= Slight Tremor Visible Yawning Observation: 1= 1-2x During Session Anxiety or Irritability: 2=Irritable/Anxious Goose Flesh Skin: 3=Piloerection COWS Score: 12 BHS Progress Note (SOAP) Subjective: Body Aches, Tremors, Fatigue. Objective: PATIENT A & O X 3. NO ACUTE DISTRESS. 12/14/17 17:00 Vital Signs Temperature 97.0 F L 12/14/17 14:15 Pulse Rate 60 12/14/17 14:15 Respiratory Rate 16 12/14/17 14:15 Blood Pressure 113/74 12/14/17 14:15 O2 Sat by Pulse Oximetry (%) Laboratory Tests 12/13/17 12/14/17 12/14/17 22:30 07:00 07:00 WBC 5.8 RBC 5.11 Hgb 14.6 Hct 43.8 MCV 85.6 MCH 28.6 MCHC 33.4 RDW 14.8 Plt Count 191 MPV 8.3 Sodium Potassium Chloride Carbon Dioxide Anion Gap BUN Creatinine Creat Clearance w eGFR Random Glucose Calcium Total Bilirubin AST ALT Alkaline Phosphatase Total Protein Albumin Urine Color Yellow Urine Appearance Clear Urine pH 7.0 D Ur Specific [place] 1.023 Urine Protein Negative Urine Glucose (UA) Negative Urine Ketones Negative Urine Blood Negative Urine Nitrite Negative Urine Bilirubin Negative Urine Urobilinogen Negative Ur Leukocyte Esterase Negative RPR Titer HIV 1&2 Antibody Screen Negative HIV P24 Antigen Negative 12/14/17 12/14/17 07:00 07:00 WBC RBC Hgb Hct MCV MCH MCHC RDW Plt Count MPV Sodium 143 Potassium 3.9 Chloride 106 Carbon Dioxide 26 Anion Gap 11 BUN 13 Creatinine 1.1 Creat Clearance w eGFR > 60 Random Glucose 77 D Calcium 8.7 Total Bilirubin 0.3 D AST 15 D ALT 16 D Alkaline Phosphatase 91 D Total Protein 6.1 L Albumin 3.3 L Urine Color Urine Appearance Urine pH Ur Specific [place] Urine Protein Urine Glucose (UA) Urine Ketones Urine Blood Urine Nitrite Urine Bilirubin Urine Urobilinogen Ur Leukocyte Esterase RPR Titer Nonreactive HIV 1&2 Antibody Screen HIV P24 Antigen LABS NOTED. Assessment: 12/14/17 17:00 WITHDRAWAL SYMPTOMS. Plan: CONTINUE DETOX.
[2017-12-14] MEDS: THIAMINE HCL 100 MG TABLET (FP) PO SCH (22:02)
[2017-12-14] MEDS: MELATONIN 5 MG TABLETS PO PRN (22:02)
[2017-12-15] MEDS ORDERED: METHADONE HCL 5 MG TABLET (FOR DETOX USE ONLY) PO ONE (10:00)
[2017-12-15] MEDS: PRENATAL VITAMINS W/ FOLIC ACID TABLET (FP) PO SCH (10:32)
[2017-12-15] MEDS: diazePAM 5 MG TABLET PO PRN ×4 (10:32→22:59)
[2017-12-15] MEDS: NICOTINE 14 MG/24 HOURS TOPICAL PATCH TD SCH (10:32)
[2017-12-15] MEDS ORDERED: TRIMETHOBENZAMIDE HCL 200MG/2ML INJ IM ONE (11:14)
--- NOTE | 2017-12-15 11:44 | PN ---
S COWS - Scale Resting Pulse: 0= [place] 80 or Below Sweatin= Chills/Flushing Restless Observation: 3= Extraneous Movement Pupil Size: 2= Moderately Dilated Bone or Joint Aches: 4=Acute Joint/Muscle Pain Runny Nose/ Eye Tearin= Nasal Congestion GI Upset > 30mins: 3= Vomiting/Diarrhea Tremor Observation of Outstretched Hands: 1= Tremor Bath, Not Seen Yawning Observation: 1= 1-2x During Session Anxiety or Irritability: 2=Irritable/Anxious Goose Flesh Skin: 0=Smooth Skin COWS Score: 18 BHS Progress Note (SOAP) Subjective: ANXIETY,IRRITABILITY,AGITATIONS,NAUSEA/VOMITING. Objective: 12/15/17 11:43 Vital Signs Temperature 96.1 F L 12/15/17 09:20 Pulse Rate 64 12/15/17 09:20 Respiratory Rate 18 12/15/17 09:20 Blood Pressure 119/77 12/15/17 09:20 O2 Sat by Pulse Oximetry (%) Laboratory Last Values WBC 5.8 K/mm3 (4.0-10.0) 12/14/17 07:00 RBC 5.11 M/mm3 (4.00-5.60) 12/14/17 07:00 Hgb 14.6 GM/dL (11.7-16.9) 12/14/17 07:00 Hct 43.8 % (35.4-49) 12/14/17 07:00 MCV 85.6 fl (80-96) 12/14/17 07:00 MCH 28.6 pg (25.7-33.7) 12/14/17 07:00 MCHC 33.4 g/dl (32.0-35.9) 12/14/17 07:00 RDW 14.8 % (11.9-15.9) 12/14/17 07:00 Plt Count 191 K/MM3 (134-434) 12/14/17 07:00 MPV 8.3 fl (7.5-11.1) 12/14/17 07:00 Sodium 143 mmol/L (136-145) 12/14/17 07:00 Potassium 3.9 mmol/L (3.5-5.1) 12/14/17 07:00 Chloride 106 mmol/L (98-107) 12/14/17 07:00 Carbon Dioxide 26 mmol/L (21-32) 12/14/17 07:00 Anion Gap 11 (8-16) 12/14/17 07:00 BUN 13 mg/dL (7-18) 12/14/17 07:00 Creatinine 1.1 mg/dL (0.7-1.3) 12/14/17 07:00 Creat Clearance w eGFR > 60 (>60) 12/14/17 07:00 Random Glucose 77 mg/dL (74-106) D 12/14/17 07:00 Calcium 8.7 mg/dL (8.5-10.1) 12/14/17 07:00 Total Bilirubin 0.3 mg/dL (0.2-1.0) D 12/14/17 07:00 AST 15 U/L (15-37) D 12/14/17 07:00 ALT 16 U/L (12-78) D 12/14/17 07:00 Alkaline Phosphatase 91 U/L (45-117) D 12/14/17 07:00 Total Protein 6.1 g/dl (6.4-8.2) L 12/14/17 07:00 Albumin 3.3 g/dl (3.4-5.0) L 12/14/17 07:00 Urine Color Yellow 12/13/17 22:30 Urine Appearance Clear 12/13/17 22:30 Urine pH 7.0 (5.0-8.0) D 12/13/17 22:30 Ur Specific [place] 1.023 (1.001-1.035) 12/13/17 22:30 Urine Protein Negative (NEGATIVE) 12/13/17 22:30 Urine Glucose (UA) Negative (NEGATIVE) 12/13/17 22:30 Urine Ketones Negative (NEGATIVE) 12/13/17 22:30 Urine Blood Negative (NEGATIVE) 12/13/17 22:30 Urine Nitrite Negative (NEGATIVE) 12/13/17 22:30 Urine Bilirubin Negative (<2.0 mg/dL) 12/13/17 22:30 Urine Urobilinogen Negative mg/dL (0.2-1.0) 12/13/17 22:30 Ur Leukocyte Esterase Negative (NEGATIVE) 12/13/17 22:30 RPR Titer Nonreactive (NONREACTIVE) 12/14/17 07:00 HIV 1&2 Antibody Screen Negative 12/14/17 07:00 HIV P24 Antigen Negative 12/14/17 07:00 Assessment: 12/15/17 11:43 WITHDRAWAL SX Plan: CONTINUE DETOX TIGAN 200 MG IM NOW ZOFRAN 8 MG SL Q6H PRN FOR N/V.
[2017-12-15] MEDS ORDERED: METHADONE HCL 10 MG TABLET (FOR DETOX USE ONLY) PO ONE (12:38)
[2017-12-15] MEDS: ONDANSETRON *ODT* 4 MG TABLET SL PRN ×2 (17:09→23:09)
[2017-12-15] MEDS: MAG HYDROX/AL HYDROX/SIMETH 30 ML UNIT-DOSE CUP PO PRN (20:29)
[2017-12-15] MEDS: MELATONIN 5 MG TABLETS PO PRN (22:07)
[2017-12-15] MEDS: THIAMINE HCL 100 MG TABLET (FP) PO SCH (22:07)
[2017-12-16] MEDS: diazePAM 5 MG TABLET PO PRN ×2 (08:44→12:58)
[2017-12-16] MEDS: ONDANSETRON *ODT* 4 MG TABLET SL PRN (08:44)
[2017-12-16] MEDS: NICOTINE 14 MG/24 HOURS TOPICAL PATCH TD SCH (09:39)
[2017-12-16] MEDS: PRENATAL VITAMINS W/ FOLIC ACID TABLET (FP) PO SCH (09:39)
[2017-12-16] MEDS: hydrOXYzine PAMOATE 50 MG CAPSULE (FP) PO PRN ×2 (09:39→19:34)
[2017-12-16] MEDS ORDERED: METHADONE HCL 5 MG TABLET (FOR DETOX USE ONLY) PO ONE (10:00)
--- NOTE | 2017-12-16 14:10 | PN ---
BHS Progress Note (SOAP) Subjective: Vomiting, Interrupted Sleep. Objective: PATIENT A & O X 3, OBSERVED AMBULATING ON UNIT. NO ACUTE DISTRESS. 12/16/17 14:08 Vital Signs Temperature 98.2 F 12/16/17 13:28 Pulse Rate 74 12/16/17 13:28 Respiratory Rate 18 12/16/17 13:28 Blood Pressure 136/86 12/16/17 13:28 O2 Sat by Pulse Oximetry (%) Laboratory Tests 12/13/17 12/14/17 12/14/17 22:30 07:00 07:00 WBC 5.8 RBC 5.11 Hgb 14.6 Hct 43.8 MCV 85.6 MCH 28.6 MCHC 33.4 RDW 14.8 Plt Count 191 MPV 8.3 Sodium Potassium Chloride Carbon Dioxide Anion Gap BUN Creatinine Creat Clearance w eGFR Random Glucose Calcium Total Bilirubin AST ALT Alkaline Phosphatase Total Protein Albumin Urine Color Yellow Urine Appearance Clear Urine pH 7.0 D Ur Specific [place] 1.023 Urine Protein Negative Urine Glucose (UA) Negative Urine Ketones Negative Urine Blood Negative Urine Nitrite Negative Urine Bilirubin Negative Urine Urobilinogen Negative Ur Leukocyte Esterase Negative RPR Titer HIV 1&2 Antibody Screen Negative HIV P24 Antigen Negative 12/14/17 12/14/17 07:00 07:00 WBC RBC Hgb Hct MCV MCH MCHC RDW Plt Count MPV Sodium 143 Potassium 3.9 Chloride 106 Carbon Dioxide 26 Anion Gap 11 BUN 13 Creatinine 1.1 Creat Clearance w eGFR > 60 Random Glucose 77 D Calcium 8.7 Total Bilirubin 0.3 D AST 15 D ALT 16 D Alkaline Phosphatase 91 D Total Protein 6.1 L Albumin 3.3 L Urine Color Urine Appearance Urine pH Ur Specific [place] Urine Protein Urine Glucose (UA) Urine Ketones Urine Blood Urine Nitrite Urine Bilirubin Urine Urobilinogen Ur Leukocyte Esterase RPR Titer Nonreactive HIV 1&2 Antibody Screen HIV P24 Antigen LABS NOTED. Assessment: 12/16/17 14:09 WITHDRAWAL SYMPTOMS. Plan: CONTINUE DETOX. PRN ZOFRAN SL FOR VOMITING.
[2017-12-16] MEDS: THIAMINE HCL 100 MG TABLET (FP) PO SCH (22:33)
[2017-12-16] MEDS: MELATONIN 5 MG TABLETS PO PRN (22:34)
[2017-12-17] MEDS: MAG HYDROX/AL HYDROX/SIMETH 30 ML UNIT-DOSE CUP PO PRN ×2 (00:27→21:03)
[2017-12-17] MEDS: ONDANSETRON *ODT* 4 MG TABLET SL PRN ×2 (08:50→17:59)
[2017-12-17] MEDS: NICOTINE 14 MG/24 HOURS TOPICAL PATCH TD SCH (09:33)
[2017-12-17] MEDS: PRENATAL VITAMINS W/ FOLIC ACID TABLET (FP) PO SCH (09:33)
[2017-12-17] MEDS: hydrOXYzine PAMOATE 50 MG CAPSULE (FP) PO PRN ×2 (09:33→22:08)
[2017-12-17] MEDS ORDERED: METHADONE HCL 10 MG TABLET (FOR DETOX USE ONLY) PO ONE (10:00)
--- NOTE | 2017-12-17 14:01 | PN ---
BHS Progress Note (SOAP) Subjective: Nausea, sweating, tremor, interrupted sleep Objective: 12/17/17 14:01 Last Vital Signs Temp Pulse Resp BP Pulse Ox 97.3 F L 69 18 111/66 12/17/17 13:44 12/17/17 13:44 12/17/17 13:44 12/17/17 13:44 Laboratory Tests 12/13/17 12/14/17 12/14/17 22:30 07:00 07:00 WBC 5.8 RBC 5.11 Hgb 14.6 Hct 43.8 MCV 85.6 MCH 28.6 MCHC 33.4 RDW 14.8 Plt Count 191 MPV 8.3 Sodium Potassium Chloride Carbon Dioxide Anion Gap BUN Creatinine Creat Clearance w eGFR Random Glucose Calcium Total Bilirubin AST ALT Alkaline Phosphatase Total Protein Albumin Urine Color Yellow Urine Appearance Clear Urine pH 7.0 D Ur Specific [place] 1.023 Urine Protein Negative Urine Glucose (UA) Negative Urine Ketones Negative Urine Blood Negative Urine Nitrite Negative Urine Bilirubin Negative Urine Urobilinogen Negative Ur Leukocyte Esterase Negative RPR Titer HIV 1&2 Antibody Screen Negative HIV P24 Antigen Negative 12/14/17 12/14/17 07:00 07:00 WBC RBC Hgb Hct MCV MCH MCHC RDW Plt Count MPV Sodium 143 Potassium 3.9 Chloride 106 Carbon Dioxide 26 Anion Gap 11 BUN 13 Creatinine 1.1 Creat Clearance w eGFR > 60 Random Glucose 77 D Calcium 8.7 Total Bilirubin 0.3 D AST 15 D ALT 16 D Alkaline Phosphatase 91 D Total Protein 6.1 L Albumin 3.3 L Urine Color Urine Appearance Urine pH Ur Specific [place] Urine Protein Urine Glucose (UA) Urine Ketones Urine Blood Urine Nitrite Urine Bilirubin Urine Urobilinogen Ur Leukocyte Esterase RPR Titer Nonreactive HIV 1&2 Antibody Screen HIV P24 Antigen Labs noted Assessment: 12/17/17 14:01 Withdrawal symptoms Plan: Continue detox Encouraged to drink more water for hydration
[2017-12-17] MEDS: THIAMINE HCL 100 MG TABLET (FP) PO SCH (22:07)
[2017-12-17] MEDS: MELATONIN 5 MG TABLETS PO PRN (22:08)
[2017-12-18] MEDS ORDERED: METHADONE HCL 5 MG TABLET (FOR DETOX USE ONLY) PO ONE (06:00)
[2017-12-18 06:04] VITALS: BP 136/82; PULSE 93; TEMP 98
--- NOTE | 2017-12-18 13:20 | PN ---
BHS Progress Note (SOAP) Subjective: no new complaints Objective: 12/18/17 13:17 In no acute distress Vital Signs Temperature 98 F 12/18/17 06:04 Pulse Rate 93 H 12/18/17 06:04 Respiratory Rate 18 12/18/17 06:04 Blood Pressure 136/82 12/18/17 06:04 O2 Sat by Pulse Oximetry (%) Assessment: 12/18/17 13:19 detox completed successfully Plan: for discharge
--- NOTE | 2017-12-18 13:24 | DS ---
[facility] Detox Discharge Summary Admission Date: 12/13/17 Discharge Date: 12/18/17 - History Additional Comments: Pt will f/u in outpatient NA meetings/rehab - Physical Exam Results Vital Signs: Vital Signs Temperature 98 F 12/18/17 06:04 Pulse Rate 93 H 12/18/17 06:04 Respiratory Rate 18 12/18/17 06:04 Blood Pressure 136/82 12/18/17 06:04 O2 Sat by Pulse Oximetry (%) Pertinent Admission Physical Exam Findings: withdrawal sx - Treatment Hospital Course: Detox Protocol Followed, Detoxed Safely, Responded well, Discharged Condition Good Patient has Accepted a Rehab Referral to: O/p program - Medication Discharge Medications: Ambulatory Orders Olanzapine [Zyprexa] 5 mg PO DAILY 12/13/17 - Diagnosis (1) Opioid dependence with withdrawal Status: Acute (2) Substance induced mood disorder Status: Chronic (3) Cannabis dependence, uncomplicated Status: Chronic (4) Nicotine dependence Status: Chronic Qualifiers: Nicotine product type: cigarettes Substance use status: in withdrawal Qualified Code(s): F17.213 - Nicotine dependence, cigarettes, with withdrawal (5) Bipolar disorder Status: Suspected
== END 2017-12-18 09:07 | disposition home or self-care (01) | DRG 773 ==
LOC: YASAS 15:14 → Y3N 19:47
PROVIDERS: ADMIT Internal Medicine; ATTEND Internal Medicine
PROC: HZ2ZZZZ Detoxification Services for Substance Abuse Treatment (ICD-10-PCS; principal; 2017-12-13)
DX: F11.23 Opioid dependence with withdrawal (principal); F12.20 Cannabis dependence, uncomplicated; F17.210 Nicotine dependence, cigarettes, uncomplicated; F19.24 Other psychoactive substance dependence with psychoactive substance-induced mood disorder; E72.04 Cystinosis
CPT/HCPCS: 36415; 80053; 81003; 85027; 86593; 87389; 93005; 93010; Q0162

== ENCOUNTER 2018-01-23 18:24 | Inpatient (IN) | payer OTHER ==
[2018-01-23 22:19] VITALS: BMI 24.7
[2018-01-24] MEDS ORDERED: IBUPROFEN 400 MG TABLET (FP) PO PRN (00:03)
[2018-01-24] MEDS ORDERED: P-EPHED 60MG/TRIPROLIDI 2.5MG TABLET PO PRN (00:03)
[2018-01-24] MEDS ORDERED: LOPERAMIDE HCL 2 MG CAPSULE PO PRN (00:03)
[2018-01-24] MEDS ORDERED: guaiFENesin/D-METHORPHAN HB 10 ML UNIT-DOSE CUPS PO PRN (00:03)
[2018-01-24] MEDS ORDERED: MAGNESIUM HYDROX 2400MG/30ML ORAL SUSPENSION 30 ML CUP PO PRN (00:03)
[2018-01-24] MEDS ORDERED: MENTHOL/PHENOL 1 EACH UD MM PRN (00:03)
[2018-01-24] MEDS ORDERED: NICOTINE POLACRILEX 2 MG GUM BC PRN (00:03)
[2018-01-24] MEDS ORDERED: METHADONE HCL 10 MG TABLET (FOR DETOX USE ONLY) PO ONE ×3 (00:03→23:00)
[2018-01-24] MEDS ORDERED: MAGNESIUM CITRATE 300 ML BOTTLE PO PRN (00:03)
[2018-01-24] MEDS ORDERED: ACETAMINOPHEN 325 MG TABLET (FP) PO PRN (00:03)
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
[2018-01-24] MEDS: diazePAM 5 MG TABLET PO PRN ×3 (01:12→22:08)
[2018-01-24 10:07] LABS: HEMATOCRIT 44.7 % (35.4-49); HEMOGLOBIN 14.8 GM/dL (11.7-16.9); MCH 28.8 pg (25.7-33.7); MCHC 33.2 g/dl (32.0-35.9); MEAN CELL VOLUME 86.9 fl (80-96); MEAN PLT VOLUME 8.5 fl (7.5-11.1); PLATELET COUNT 209 K/MM3 (134-434); RBC 5.15 M/mm3 (4.00-5.60); RDW 15.3 % (11.9-15.9); WHITE BLOOD COUNT 6.9 K/mm3 (4.0-10.0)
[2018-01-24] MEDS: PRENATAL VITAMINS W/ FOLIC ACID TABLET (FP) PO SCH (10:08)
[2018-01-24 10:16] LABS: ALBUMIN 3.3 g/dl (3.4-5.0); ANION GAP 2 (8-16); BILIRUBIN,TOTAL 0.5 mg/dL (0.2-1.0); BLOOD UREA NITROGEN 14 mg/dL (7-18); CALCIUM 8.6 mg/dL (8.5-10.1); CHLORIDE 104 mmol/L (98-107); CO2 34 mmol/L (21-32); CREATININE 1.1 mg/dL (0.7-1.3); GLUCOSE,RANDOM 73 mg/dL (74-106); SGOT/AST 14 U/L (15-37); SGPT/ALT 20 U/L (12-78); SODIUM 140 mmol/L (136-145); TOT PROT 6.3 g/dl (6.4-8.2)
[2018-01-24] MEDS: NICOTINE 14 MG/24 HOURS TOPICAL PATCH TD SCH (10:16)
[2018-01-24 10:18] LABS: ALK PHOS 93 U/L (45-117)
--- NOTE | 2018-01-24 10:30 | PN ---
BHS COWS - Scale Resting Pulse: 0= [place] 80 or Below Sweatin= Chills/Flushing Restless Observation: 3= Extraneous Movement Pupil Size: 1= Pupils >than Normal Bone or Joint Aches: 2= Severe Diffuse Aches Runny Nose/ Eye Tearin= Nasal Congestion GI Upset > 30mins: 2= Nausea/Diarrhea Tremor Observation of Outstretched Hands: 2= Slight Tremor Visible Yawning Observation: 1= 1-2x During Session Anxiety or Irritability: 2=Irritable/Anxious Goose Flesh Skin: 0=Smooth Skin COWS Score: 15 BHS Progress Note (SOAP) Subjective: ALERT,IRRITABLE,ANXIOUS,INTERRUPTED,PAIN IN THE BODY AND BACK Objective: 01/24/18 10:30 Vital Signs Temperature 97.5 F L 01/24/18 10:06 Pulse Rate 63 01/24/18 10:06 Respiratory Rate 19 01/24/18 10:06 Blood Pressure 121/81 01/24/18 10:06 O2 Sat by Pulse Oximetry (%) EKG SINUS BRADYCARDIA 48/MIN PROLONG QT 410/366 NO CHEST PAIN,NO SOB,NO DIZZINESS Laboratory Last Values Sodium 140 mmol/L (136-145) 01/24/18 07:30 Potassium 4.0 mmol/L (3.5-5.1) 01/24/18 07:30 Chloride 104 mmol/L (98-107) 01/24/18 07:30 Carbon Dioxide 34 mmol/L (21-32) H D 01/24/18 07:30 Anion Gap 2 (8-16) L 01/24/18 07:30 BUN 14 mg/dL (7-18) 01/24/18 07:30 Creatinine 1.1 mg/dL (0.7-1.3) 01/24/18 07:30 Creat Clearance w eGFR > 60 (>60) 01/24/18 07:30 Random Glucose 73 mg/dL (74-106) L 01/24/18 07:30 Calcium 8.6 mg/dL (8.5-10.1) 01/24/18 07:30 Total Bilirubin 0.5 mg/dL (0.2-1.0) D 01/24/18 07:30 AST 14 U/L (15-37) L 01/24/18 07:30 ALT 20 U/L (12-78) D 01/24/18 07:30 Alkaline Phosphatase 93 U/L (45-117) 01/24/18 07:30 Total Protein 6.3 g/dl (6.4-8.2) L 01/24/18 07:30 Albumin 3.3 g/dl (3.4-5.0) L 01/24/18 07:30 LABS PENDING Assessment: 01/24/18 10:32 WITHDRAWAL SYMPTOM Plan: CONTINUE DETOX
--- NOTE | 2018-01-24 12:04 | EKG ---
Test Reason : Blood Pressure : / mmHG Vent. Rate : 048 BPM Atrial Rate : 048 BPM P-R Int : 176 ms QRS Dur : 086 ms QT Int : 410 ms P-R-T Axes : 075 076 058 degrees QTc Int : 366 ms SINUS BRADYCARDIA OTHERWISE NORMAL ECG WHEN COMPARED WITH ECG OF 13-DEC-2017 20:55, VENT. RATE HAS DECREASED BY 23 BPM Confirmed by MADI ULRICH MD ([id number]) on 01/24/2018 12:03:52 PM Referred By: Confirmed By:MADI ULRICH MD
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
[2018-01-24] MEDS ORDERED: MELATONIN 5 MG TABLETS PO PRN (22:00)
[2018-01-24] MEDS: THIAMINE HCL 100 MG TABLET (FP) PO SCH (22:08)
--- NOTE | 2018-01-25 09:10 | PN ---
BHS COWS - Scale Resting Pulse: 0= [place] 80 or Below Sweatin= Chills/Flushing Restless Observation: 3= Extraneous Movement Pupil Size: 1= Pupils >than Normal Bone or Joint Aches: 2= Severe Diffuse Aches Runny Nose/ Eye Tearin= Runny Nose/Eyes GI Upset > 30mins: 2= Nausea/Diarrhea Tremor Observation of Outstretched Hands: 2= Slight Tremor Visible Yawning Observation: 1= 1-2x During Session Anxiety or Irritability: 2=Irritable/Anxious Goose Flesh Skin: 0=Smooth Skin COWS Score: 16 S Progress Note (SOAP) Subjective: ALERT,IRRITABLE,ANXIOUS,INTERRUPTED SLEEP,PAIN IN THE BODY Objective: 01/25/18 09:08 Vital Signs Temperature 97.7 F 01/25/18 06:25 Pulse Rate 61 01/25/18 06:25 Respiratory Rate 18 01/25/18 06:25 Blood Pressure 123/73 01/25/18 06:25 O2 Sat by Pulse Oximetry (%) Laboratory Last Values WBC 6.9 K/mm3 (4.0-10.0) 01/24/18 07:30 RBC 5.15 M/mm3 (4.00-5.60) 01/24/18 07:30 Hgb 14.8 GM/dL (11.7-16.9) 01/24/18 07:30 Hct 44.7 % (35.4-49) 01/24/18 07:30 MCV 86.9 fl (80-96) 01/24/18 07:30 MCH 28.8 pg (25.7-33.7) 01/24/18 07:30 MCHC 33.2 g/dl (32.0-35.9) 01/24/18 07:30 RDW 15.3 % (11.9-15.9) 01/24/18 07:30 Plt Count 209 K/MM3 (134-434) 01/24/18 07:30 MPV 8.5 fl (7.5-11.1) 01/24/18 07:30 Sodium 140 mmol/L (136-145) 01/24/18 07:30 Potassium 4.0 mmol/L (3.5-5.1) 01/24/18 07:30 Chloride 104 mmol/L (98-107) 01/24/18 07:30 Carbon Dioxide 34 mmol/L (21-32) H D 01/24/18 07:30 Anion Gap 2 (8-16) L 01/24/18 07:30 BUN 14 mg/dL (7-18) 01/24/18 07:30 Creatinine 1.1 mg/dL (0.7-1.3) 01/24/18 07:30 Creat Clearance w eGFR > 60 (>60) 01/24/18 07:30 Random Glucose 73 mg/dL (74-106) L 01/24/18 07:30 Calcium 8.6 mg/dL (8.5-10.1) 01/24/18 07:30 Total Bilirubin 0.5 mg/dL (0.2-1.0) D 01/24/18 07:30 AST 14 U/L (15-37) L 01/24/18 07:30 ALT 20 U/L (12-78) D 01/24/18 07:30 Alkaline Phosphatase 93 U/L (45-117) 01/24/18 07:30 Total Protein 6.3 g/dl (6.4-8.2) L 01/24/18 07:30 Albumin 3.3 g/dl (3.4-5.0) L 01/24/18 07:30 RPR Titer Nonreactive (NONREACTIVE) 01/24/18 07:30 HIV 1&2 Antibody Screen Negative 01/24/18 08:30 HIV P24 Antigen Negative 01/24/18 08:30 Assessment: 01/25/18 09:10 WITHDRAWAL SYMPTOM Plan: CONTINUE DETOX
[2018-01-25] MEDS ORDERED: METHADONE HCL 10 MG TABLET (FOR DETOX USE ONLY) PO ONE (10:00)
[2018-01-25] MEDS: NICOTINE 14 MG/24 HOURS TOPICAL PATCH TD SCH (10:45)
[2018-01-25] MEDS: PRENATAL VITAMINS W/ FOLIC ACID TABLET (FP) PO SCH (10:45)
[2018-01-25] MEDS: diazePAM 5 MG TABLET PO PRN (22:07)
[2018-01-25] MEDS: THIAMINE HCL 100 MG TABLET (FP) PO SCH (22:07)
[2018-01-26 03:31] LABS: URINE APPEARANCE CLEAR; URINE BILIRUBIN NEGATIVE (<2.0 mg/dL); URINE COLOR YELLOW; URINE GLUCOSE (UA) NEGATIVE (NEGATIVE); URINE KETONE NEGATIVE (NEGATIVE); URINE LEUK ESTERASE NEGATIVE (NEGATIVE); URINE NITRITE NEGATIVE (NEGATIVE); URINE PROTEIN NEGATIVE (NEGATIVE); URINE UROBILINOGEN NEGATIVE mg/dL (0.2-1.0)
--- NOTE | 2018-01-26 09:10 | PN ---
BHS Progress Note (SOAP) Subjective: ALERT,IRRITABLE,ANXIOUS,INTERRUPTED SLEEP,PAIN IN THE BODY AND BACK Objective: 01/26/18 09:08 Vital Signs Temperature 96.3 F L 01/26/18 05:42 Pulse Rate 72 01/26/18 05:42 Respiratory Rate 18 01/26/18 05:42 Blood Pressure 112/70 01/26/18 05:42 O2 Sat by Pulse Oximetry (%) Assessment: 01/26/18 09:10 WITHDRAWAL SYMPTOM Plan: CONTINUE DETOX
--- NOTE | 2018-01-26 09:59 | PN ---
BHS Progress Note Note: LESS WITHDRAWAL SYMPTOM,MEDICATION ADJUST,CONTINUE DETOX
[2018-01-26] MEDS ORDERED: METHADONE HCL 5 MG TABLET (FOR DETOX USE ONLY) PO ONE ×2 (10:00)
[2018-01-26] MEDS: PRENATAL VITAMINS W/ FOLIC ACID TABLET (FP) PO SCH (10:28)
[2018-01-26] MEDS: NICOTINE 14 MG/24 HOURS TOPICAL PATCH TD SCH (10:28)
[2018-01-26] MEDS: diazePAM 5 MG TABLET PO PRN ×4 (10:29→23:47)
[2018-01-26] MEDS ORDERED: TRIMETHOBENZAMIDE HCL 200MG/2ML INJ IM PRN (11:33)
--- NOTE | 2018-01-26 11:35 | PN ---
BHS Progress Note Note: VOMITING,WITHDRAWAL SYMPTOM,TIGAN 200 MGS IM Q 8 HRS,CONTINUE DETOX
[2018-01-26] MEDS ORDERED: CYCLOBENZAPRINE HCL 10 MG TABLET (FP) PO PRN (14:16)
[2018-01-26] MEDS ORDERED: cloNIDine HCL 0.1 MG TABLET PO ONE (14:45)
[2018-01-26] MEDS: MAG HYDROX/AL HYDROX/SIMETH 30 ML UNIT-DOSE CUP PO PRN (18:10)
[2018-01-26] MEDS ORDERED: ONDANSETRON *ODT* 4 MG TABLET SL PRN (18:18)
--- NOTE | 2018-01-26 18:31 | PN ---
BHS Progress Note Note: Vomiting up greenish liquid products. Rx'd w/ tigan earlier. Denies abd pain. Abd soft w/ (+) BS. Denies diarrhea or constipation. Vital Signs - 24 hr 01/25/18 01/26/18 01/26/18 22:13 05:42 09:40 Temperature 97.7 F 96.3 F L 98.1 F Pulse Rate 77 72 73 Respiratory 18 18 18 Rate Blood Pressure 114/74 112/70 115/75 01/26/18 01/26/18 13:02 17:09 Temperature 98.5 F 97.8 F Pulse Rate 68 91 H Respiratory 18 21 Rate Blood Pressure 148/89 147/57 Suspected protracted opiate w/drawal symptoms. Will prescribe Zofran and increase clonidine. To notify staff of continued vomiting or abd pain.
[2018-01-26] MEDS ORDERED: ONDANSETRON *ODT* 4 MG TABLET SL ONE (18:45)
[2018-01-26] MEDS ORDERED: cloNIDine HCL 0.1 MG TABLET PO SCH (22:00)
[2018-01-26] MEDS: cloNIDine HCL 0.1 MG TABLET PO SCH (22:49)
[2018-01-26] MEDS: CYCLOBENZAPRINE HCL 10 MG TABLET (FP) PO SCH (22:49)
[2018-01-26] MEDS: THIAMINE HCL 100 MG TABLET (FP) PO SCH (22:49)
[2018-01-26] MEDS ORDERED: PANTOPRAZOLE 20 MG TABLET (FP) PO ONE (23:45)
[2018-01-27] MEDS: MAG HYDROX/AL HYDROX/SIMETH 30 ML UNIT-DOSE CUP PO PRN (02:06)
[2018-01-27] MEDS: CYCLOBENZAPRINE HCL 10 MG TABLET (FP) PO SCH ×3 (05:14→23:03)
[2018-01-27] MEDS ORDERED: METHADONE HCL 5 MG TABLET (FOR DETOX USE ONLY) PO ONE (10:00)
[2018-01-27] MEDS ORDERED: METHADONE HCL 10 MG TABLET (FOR DETOX USE ONLY) PO ONE (10:00)
[2018-01-27] MEDS: cloNIDine HCL 0.1 MG TABLET PO SCH ×2 (10:35→23:04)
[2018-01-27] MEDS: NICOTINE 14 MG/24 HOURS TOPICAL PATCH TD SCH (10:35)
[2018-01-27] MEDS: PRENATAL VITAMINS W/ FOLIC ACID TABLET (FP) PO SCH (10:35)
--- NOTE | 2018-01-27 13:12 | PN ---
BHS Progress Note (SOAP) Subjective: Sleepless sweats Objective: 01/27/18 13:11 A & O x 3 No acute distress Vital Signs Temperature 97.7 F 01/27/18 09:10 Pulse Rate 88 01/27/18 09:10 Respiratory Rate 18 01/27/18 09:10 Blood Pressure 133/81 01/27/18 09:10 O2 Sat by Pulse Oximetry (%) Assessment: withdrawal sx Plan: continue detox d/c tomorrow
[2018-01-27] MEDS: THIAMINE HCL 100 MG TABLET (FP) PO SCH (23:03)
[2018-01-28] MEDS: METHADONE HCL 5 MG TABLET (FOR DETOX USE ONLY) PO ONE ×3 (06:27→06:42)
[2018-01-28] MEDS: CYCLOBENZAPRINE HCL 10 MG TABLET (FP) PO SCH ×2 (06:27→06:42)
[2018-01-28 06:39] VITALS: BP 135/65; PULSE 83; TEMP 97.7
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
[2018-01-28] MEDS ORDERED: METHADONE HCL 10 MG TABLET (FOR DETOX USE ONLY) PO ONE (10:00)
[2018-01-29] MEDS ORDERED: METHADONE HCL 5 MG TABLET (FOR DETOX USE ONLY) PO ONE (06:00)
== END 2018-01-28 09:07 | disposition home or self-care (01) | DRG 773 ==
LOC: YASAS 18:24 → Y6N 22:43
PROVIDERS: ADMIT Surgery; ATTEND Surgery
PROC: HZ2ZZZZ Detoxification Services for Substance Abuse Treatment (ICD-10-PCS; principal; 2018-01-23)
DX: F11.23 Opioid dependence with withdrawal (principal); F12.20 Cannabis dependence, uncomplicated; F17.210 Nicotine dependence, cigarettes, uncomplicated; F16.10 Hallucinogen abuse, uncomplicated; F19.24 Other psychoactive substance dependence with psychoactive substance-induced mood disorder; Z86.59 Personal history of other mental and behavioral disorders
CPT/HCPCS: 36415; 80053; 81003; 85027; 86593; 87389; 93005; 93010; J0735; Q0162